=== PATIENT | male | born 1955 | race Caucasian/White ===

== ENCOUNTER → 2020-06-06 | Outpatient (CLI) | payer OTHER ==
[~2020-06-06] MED LIST: AUGMENTIN 875-1 EACH PO; PERCOCET 5/325 T1 EA PO
== END ==
LOC: HEART CORB 11:55
DX: R00.2 Palpitations (principal)

== ENCOUNTER → 2020-07-06 | Outpatient (CLI) | payer OTHER | LOC: HEART CORB 08:00 | DX: R06.00 Dyspnea, unspecified (principal); I49.3 Ventricular premature depolarization; I11.9 Hypertensive heart disease without heart failure; R00.2 Palpitations; I07.1 Rheumatic tricuspid insufficiency; I27.20 Pulmonary hypertension, unspecified | CPT/HCPCS: 78452; 93306; A9502; J2785 ==